=== PATIENT | female | born 1990 | race African-American/Black ===

== ENCOUNTER 2020-06-14 19:51 | Emergency (ER) | payer SELFPAY ==
[2020-06-14] MEDS ORDERED: Ibuprofen 200 MG TAB ONE (20:01)
--- NOTE | 2020-06-14 21:39 | RAD ---
RIGHT ANKLE THREE VIEWS: 06/14/20 No fracture or dislocation was seen. The ankle mortise appears intact. There is soft tissue swelling over the lateral malleolus. IMPRESSION: Lateral swelling. POS: HOME
== END 2020-06-14 20:40 | disposition home or self-care (01) ==
LOC: BURERS 19:51
DX: S93.401A Sprain of unspecified ligament of right ankle, initial encounter (principal); D50.9 Iron deficiency anemia, unspecified; X50.1XXA Overexertion from prolonged static or awkward postures, initial encounter

== ENCOUNTER 2021-02-13 17:33 | Emergency (ER) | payer SELFPAY | END 2021-02-13 19:08 | disposition home or self-care (01) | LOC: BURERS 17:33 | DX: U07.1 COVID-19 (principal); K92.1 Melena; D50.9 Iron deficiency anemia, unspecified | CPT/HCPCS: 99283 ==

== ENCOUNTER 2022-04-28 09:00 | Emergency (ER) | payer OTHER, SELFPAY ==
[2022-04-28] MEDS ORDERED: Dexamethasone 10 MG/ML VIAL ONE (10:03)
[2022-04-28] MEDS ORDERED: Ibuprofen 800 MG TAB ONE (10:03)
[2022-04-28] MEDS ORDERED: Ondansetron ODT 4 MG TAB ONE (10:03)
[2022-04-28 10:30] LABS: Bilirubin Negative (Negative); Blood, Urine Negative (Negative); Clarity Cloudy (Clear); Glucose, Urine (Dipstick) Negative (Negative); Ketone, Urine Negative (Negative); Leukocyte Small (Negative); Nitrite Positive (Negative); Protein, Urine (Dipstick) Negative (Neg-Trace); Urobilinogen 0.2 mg/dL (Less than 2)
[2022-04-28 10:31] LABS: Bacteria/HPF 4+ HPF (None Seen); RBC/HPF None Seen HPF (0-3); Specific Gravity, Urine 1.021 (1.002-1.036)
[2022-04-28 10:33] LABS: Pregnancy Test - Urine (BHCG) Negative (Negative); Pregu Control Background? CLEAR/WHITE (CLR/WHITE); Pregu Control Bar Appear? YES (CONTROL BAR); Specific Gravity 1.021 (1.002-1.036)
== END 2022-04-28 10:56 | disposition home or self-care (01) ==
LOC: BURERS 09:00
DX: N30.00 Acute cystitis without hematuria (principal); J39.8 Other specified diseases of upper respiratory tract; R51.9 Headache, unspecified; D50.9 Iron deficiency anemia, unspecified; Z86.16 Personal history of COVID-19
CPT/HCPCS: 81003; 81015; 81025; 87077; 87086; 87186; 87804; 96372; 99284; J1100; Q0162

== ENCOUNTER 2022-06-24 22:24 | Emergency (ER) | payer SELFPAY ==
[2022-06-24] MEDS ORDERED: Ketorolac Tromethamine 60 MG/2 ML VIAL ONE (22:53)
[2022-06-24] MEDS ORDERED: Bicillin LA 1.2 MILLION UNITS/2 ML SYRINGE ONE (22:54)
== END 2022-06-24 23:01 | disposition home or self-care (01) ==
LOC: BURERS 22:24
DX: K08.89 Other specified disorders of teeth and supporting structures (principal)
CPT/HCPCS: 96372; 99282; J0561; J1885

== ENCOUNTER 2024-04-10 17:31 | Emergency (ER) | payer OTHER, SELFPAY ==
[2024-04-10] MEDS ORDERED: Diphenoxylate HCl/Atropine Tablet ONE (18:06)
[2024-04-10] MEDS ORDERED: Ondansetron ODT 4 MG TAB ONE (18:06)
== END 2024-04-10 18:12 | disposition home or self-care (01) ==
LOC: BURERS 17:31
DX: R19.7 Diarrhea, unspecified (principal); R11.0 Nausea
CPT/HCPCS: 99283; Q0162

== ENCOUNTER 2024-09-05 13:04 | Emergency (ER) | payer OTHER | END 2024-09-05 13:30 | disposition home or self-care (01) | LOC: BURERS 13:04 | DX: M62.838 Other muscle spasm (principal); X58.XXXA Exposure to other specified factors, initial encounter | CPT/HCPCS: 99283 ==